=== PATIENT | male | born 1950 | race Caucasian/White ===

== ENCOUNTER 2019-03-06 15:38 | Inpatient (IN) | payer OTHER, BC ==
[~2019-03-06] VITALS: Ht 188 cm; Wt 152.9 kg
[~2019-03-06 15:38] MED LIST: ASPIR 8181 MG PO; CARVEDILOL12.5 MG PO; FUROSEMIDE 80 M80 M1 PO; K-DUR 20 MEQ T20 MEQ PO; LIPITOR80 MG PO; MULTIVITAMINS PO; PANTOPRAZOLE SO40 M1 PO; QUINU10 PD PO
[2019-03-06 16:06] VITALS: BP 97/60
[2019-03-06] MEDS ORDERED: TYLENOL EXTRA500 MG PO (16:09)
[2019-03-06] MEDS ORDERED: FLOMAX0.4 MG PO (16:10)
[2019-03-06] MEDS ORDERED: KLOR-CON 1010 MEQ PO (16:11)
[2019-03-06 16:44] LABS: HEMATOCRIT 36.2 % (42.0-52.0); MCH 28.7 pg (26.0-34.0); MCHC 33.2 g/dL (28.0-37.0); MCV 86.3 fL (80.0-100.0); RBC 4.19 mil/uL (4.50-6.00); RDW 15.1 % (10.5-14.5); WBC 6.5 thou/uL (4.0-11.0)
[2019-03-06 16:55] LABS: INR 1.1; PROTIME 11.9 Seconds (9.3-11.4)
[2019-03-06 17:00] LABS: ANION GAP 9 mmol/L (7-16); BUN 39 mg/dL (7-18); CALCIUM 8.8 mg/dL (8.5-10.1); CHLORIDE 103 mmol/L (98-107); CO2 23 mmol/L (21-32); CREATININE 2.5 mg/dL (0.7-1.3); GLUCOSE 108 mg/dL (74-106); POTASSIUM 4.4 mmol/L (3.5-5.1); SODIUM 135 mmol/L (136-145); TROPONIN-I <0.06 ng/mL (<0.06)
--- NOTE | 2019-03-06 18:17 | NUR ---
PT ARRIVED TO THE UNIT AT APPROX 1600 WITH ALL BELONGINGS DIRECT ADMIT FROM DR. KWAN OFFICE. DR. KWAN NOTIFIED OF PT ARRIVAL, ORDERS RECEIVED AND IMPLEMENTED. PT ALERT AND ORIENTED, VSS, DENIES PAIN, DENIES CHEST PAIN. O2 SATS WNL ON ROOM AIR, UP SBA WITH CANE. ADMISSION COMPLETED, CONSENTS SIGNED. TELE PUT ON, ADMIT STRIP PRINTED AND DOCUMENTED. PT CURRENTLY RESTING COMFORTABLY IN BED. WILL AKNOWLEDGE AND IMPLEMENT FURTHER ORDERS. CONTINUING TO MONITOR.
[2019-03-06 18:27] LABS: URINE BILIRUBIN NEGATIVE (Negative); URINE BLOOD NEGATIVE (Negative); URINE CLARITY CLEAR; URINE COLOR YELLOW; URINE GLUCOSE-RANDOM* NEGATIVE (Negative); URINE KETONES NEGATIVE (Negative); URINE LEUKOCYTES-REFLEX NEGATIVE (Negative); URINE NITRITE-REFLEX NEGATIVE (Negative); URINE PROTEIN (DIPSTICK) NEGATIVE (Negative); URINE SPECIFIC GRAVITY 1.015 (1.005-1.035); URINE UROBILINOGEN 0.2 E.U./dl (0.2-1.0)
--- NOTE | 2019-03-06 18:37 | NUR ---
PT CONTINUES TO BE ALERT AND ORIENTED, VSS, DENIES PAIN, UP SBA WITH CANE. AFIB ON MONITOR, O2 SATS WNL ON ROOM AIR, DENIES CP, SOB. PT DENIES CONCERNS AT THIS TIME. CONTINUING TO MONITOR.
[2019-03-06 20:00] VITALS: BP 113/63
[2019-03-07] VITALS (11 sets, daily range): BP systolic 91–148; BP diastolic 42–90
[2019-03-07 05:14] LABS: CALCIUM 8.4 mg/dL (8.5-10.1); CREATININE 2.1 mg/dL (0.7-1.3); POTASSIUM 4.2 mmol/L (3.5-5.1)
--- NOTE | 2019-03-07 05:26 | NUR ---
ASSUMED PT CARE AT 1900 WITH NO SIGN OF DISTRESS NOTED IN PT. PT IS ALERT AND ORIENTED. DENIES ANY NEED. ASSESSMENT COMPLETED AND CHARTED. SCHEDULED MEDS ADMINISTERED. VITAL SIGNS STABLE. HEART RATE CONTROLLED. DENIES ANY FURTHER NEEDS AT THIS TIME.
--- NOTE | 2019-03-07 15:26 | NUR ---
ASSUMED CARE AT SHIFT CHANGE, ALERT AND ORIENTED X4. PATIENT HR 130-138/MINUT 4 TIMES, DR WALTON NOTFIED AND ORDERED RECIEVED. BP STABLE AND AFEBRILE AND WILL CONTINUE WITH POC.
--- NOTE | 2019-03-07 20:23 | NUR ---
ASSUMED CARE AT SHIFT CHANGE ALERT AND ORIENTED X4. HR WITHIN NORMAL, BP AT 1230 92/48, AND PATIENT IS ASYMPTOMATIC. C/O OF HEADACHE AND MEDICATED WITH TYLENOL AND PATIENT REPORTED RELIEVE. PROGRESSING TOWARDS GOALS AND WILL CONTINUE WITH POC.
[2019-03-08 04:00] VITALS: BP 115/64
--- NOTE | 2019-03-08 05:29 | NUR ---
RECEIVED PT'S CARE AT 1935; PT. ON CHAIR; AOX4; DURING ASSESSMENT NO C/O PAIN; REQUESTED TO WALK AROUND THE UNIT X1; NURSE WALKED WITH PT; PT. SHOWED SOB WITH AMBULATION; AT 2300 PT. C/O SOB; NC APPLIED WITH 2L O2; SBP ON THE 90'S; [facility]AM[facility]; AFTER [address] [facility] BETTER; AT 2330 SBP ABOVE 100'S; AT MIDNIGHT C/O NAUSEA; SOB; EKG PERFORMED; CHECK CHART; CARDIOLOGY NOTIFIED; ZOFRAN ORDERED X1; PT. [facility]; REFUSED ZOFRAN; BS CHECKED; 96; ST. "IT IS LOW FOR ME"; JUICE AND CRACKERS GIVEN; DURING RE-ASSESSMENT PT. SLEEPING; AT 0350 DURING ROUNDING PT. REQUESTED PRN PAIN MEDICATION; MEDICATION GIVEN; RE-ASSESSMENT PT. SLEEPING; ABLE TO REST FOR A FEW HOURS THROUGH THE NIGHT; HR LESS THAN 100; HEART RYTHM SA; ASSESSMENT CHARGED; FOLLOWING POC; WILL KEEP MONITORING; WILL PASS ON REPORT.
[2019-03-08 05:35] LABS: CALCIUM 8.5 mg/dL (8.5-10.1); CREATININE 1.6 mg/dL (0.7-1.3); POTASSIUM 4.6 mmol/L (3.5-5.1)
[2019-03-08 07:30] VITALS: BP 126/71
[2019-03-08 11:01] VITALS: BP 119/57
[2019-03-08 15:12] VITALS: BP 106/69
--- NOTE | 2019-03-08 18:15 | NUR ---
ASSUMED CARE AT SHIFT CHANGE, ALERT AND ORIENTED X4. ASSESSMENT DOCUMENTED. WALKED THE PATIENT X1, SOB AND O2 SAT REMAINS AT 96% RA, AND PATIENT REPORTED THAT HE FELT BETTER THEN LAST NIGHT. SR WITH PVC'S ON THE MONITOR AND VSS. PROGRESSING TOWARD GOALS AND WILL CONTINUE TO MONITOR.
[2019-03-08 20:10] VITALS: BP 113/47
[2019-03-08 20:49] VITALS: BP 105/42
[2019-03-09 04:55] VITALS: BP 124/54
--- NOTE | 2019-03-09 06:33 | NUR ---
RECEIVED PT'S CARE AT 1930; PT. ON CHAIR WATCHING TV; AOX4; DURING ASSESSMENT NO C/O PAIN; NO C/O SOB OR HEADACHE; REQUESTED TO TAKE MELATONIN LATER ON THE NIGHT; VS WNL; CHECK CHART; THROUGH THE NIGHT NO C/O SOB OR HEADACHES; NO C/O BACK PAIN; ABLE TO REST FOR A FEW HOURS; ASSESSMENT CHARGE; FOLLOWING POC; WILL PASS ON REPORT.
[2019-03-09 07:33] VITALS: BP 110/50
--- NOTE | 2019-03-09 08:36 | EKG ---
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 : 1950 Requested By: Nathanael Kimble Order Number: [id number] MD: Aiden Castellano Measurements Intervals [place] Rate: 80 P: 72 [place]: 200 QRS: 57 QRSD: 108 T: 101 QT: 377 QTc: 435 Interpretive Statements Sinus rhythm Multiform ventricular premature complexes Borderline low voltage, extremity leads Compared to ECG 02/24/2008 08:01:30 Electronically Signed On 03-09-2019 8:36:43 CDT by Aiden Castellano [email or web address] ��������������������������������������������� <ELECTRONICALLY SIGNED> ���������������������������������������� By: Aiden Castellano MD ��������������������������������������������� 03/09/19 0836 5 5 Aiden Castellano MD /FERNANDO
--- NOTE | 2019-03-09 08:43 | EKG ---
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1950 Requested By: Clarence Puckett Order Number: [id number] MD: Aiden Castellano Measurements Intervals [place] Rate: 95 P: 74 [place]: 198 QRS: 55 QRSD: 109 T: 100 QT: 409 QTc: 514 Interpretive Statements Sinus rhythm Ventricular tachycardia, unsustained Incomplete left bundle branch block Low voltage, extremity and precordial leads Compared to ECG 02/24/2008 08:01:30 Electronically Signed On 03-09-2019 8:43:37 CDT by Aiden Castellano [email or web address] ��������������������������������������������� <ELECTRONICALLY SIGNED> ���������������������������������������� By: Aiden Castellano MD ��������������������������������������������� 03/09/19 0843 2348 Aiden Castellano MD /FERNANDO
--- NOTE | 2019-03-09 08:44 | EKG ---
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1950 Requested By: Clarence Puckett Order Number: [id number] MD: Aiden Castellano Measurements Intervals [place] Rate: 83 P: 77 [place]: 189 QRS: 57 QRSD: 112 T: 105 QT: 392 QTc: 461 Interpretive Statements Sinus rhythm Ventricular trigeminy Low voltage, precordial leads Compared to ECG 02/24/2008 08:01:30 Electronically Signed On 03-09-2019 8:44:04 CDT by Aiden Castellano [email or web address] ��������������������������������������������� <ELECTRONICALLY SIGNED> ���������������������������������������� By: Aiden Castellano MD ��������������������������������������������� 03/09/19 0844 50 50 Aiden Castellano MD /FERNANDO
--- NOTE | 2019-03-09 08:54 | H ---
[facility] [place] [address] HISTORY AND PHYSICAL Name: BARBI COLIN Room #: 209-P ADM IN M.R.#: [id number] Admission: 03/06/19 ������������������ Attend Phys: Clarence Puckett MD Discharge: ������������������ Date of : 46 Report #: [id number] THIS REPORT FOR: //name// CC: Clarence Puckett DATE OF SERVICE: 03/06/2019 CHIEF COMPLAINT: Lightheadedness and fatigue. HISTORY OF PRESENT ILLNESS: The patient is a 68-year-old gentleman who came to the office with a 2-day history of lightheadedness. 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 He felt lightheaded and dizzy. He felt short of breath with exertion. He was unable to complete his duties and his coworkers helped him to get home. He said for the last couple of months, he has felt "fatigued," but his symptoms intensified the last 2 days. The lightheaded feeling is new as well. In the office, he had a blood pressure of 97/57 and a peripheral pulse palpated by the O2 sat monitor at 41. However, EKG revealed atrial fibrillation of 90 with an incomplete bundle branch block. This appears to be a new change from EKG as recorded at the counter helper's office in January. He has previously seen Dr. Kimble for Cardiology services. PAST MEDICAL HISTORY: Atrial flutter. He had an ablation procedure in 2007, coronary artery disease and had cardiac bypass and a mitral valve repair in 2007. It sounds to be a 2-vessel bypass. He also has a history of hypertension, GERD, dyslipidemia, diabetes type 2, diet controlled. PAST SURGICAL HISTORY: Cardiac bypass and mitral valve repair in 2007, right total knee replacement in 2010, previous ablation for atrial flutter. FAMILY HISTORY: Noncontributory. SOCIAL HISTORY: He lives at home. No chronic alcohol or tobacco use. ALLERGIES: None. MEDICATIONS: Lipitor 80 mg, potassium 10 mEq 2 a day, multivitamin, Flomax 0.4 mg, torsemide 40 mg a day, carvedilol 12.5 mg b.i.d., quinapril 10 mg, aspirin 81 mg. REVIEW OF SYSTEMS: He denies any syncope, chest pain, shortness of breath with rest, nausea, vomiting, diarrhea, constipation, dysuria. OBJECTIVE: VITAL SIGNS: Blood pressure 97/57, temperature 97.4, peripheral pulse noted 41, but apical pulse with EKG 90, weight is 317, O2 sat 97% [place] [address] HISTORY AND PHYSICAL Name: BARBI COLIN Room #: 209-P [facility] IN M.R.#: [id number] Admission: 03/06/19 ������������������ Attend Phys: Clarence Puckett MD Discharge: ������������������ Date of : 48 Report #: [id number] GENERAL: He is awake and alert, in no distress. HEAD AND NECK: Unremarkable. LUNGS: Clear. HEART: Irregular. No murmur. ABDOMEN: Obese, soft, normoactive bowel sounds. EXTREMITIES: 1+ edema. NEUROLOGIC: Motor strength 5/5 throughout. ASSESSMENT: 1. New onset atrial fibrillation. 2. Coronary artery disease. PLAN: He will be admitted to CCU with telemetry monitoring and lab data. I will ask Dr. Kimble to follow him as well. ��������������������������������������������� <ELECTRONICALLY SIGNED> ���������������������������������������� By: Clarence Puckett MD ��������������������������������������������� 03/09/19 0854 1542 1813 Clarence Puckett MD /nt
[2019-03-09 11:30] VITALS: BP 89/49
[2019-03-09] MEDS ORDERED: COREG6.25 MG PO (12:31)
[2019-03-09 13:29] VITALS: BP 89/49
--- NOTE | 2019-03-09 15:17 | NUR ---
PT ALERT AND ORIENTED TIMES FOUR. VSS, SR ON TELE. PT DENIES PAIN/SOA. PT TOLERATES MEDS AND MEALS. PT UP TO CHAIR FOR MOST OF THE SHIFT. PT PROGRESSING TOWRADS POC GOALS.
--- NOTE | 2019-03-10 09:49 | D ---
[facility] [place] [address] DISCHARGE SUMMARY Name: BARBI COLIN Room #: 209-P [facility] IN M.R.#: [id number] Admission: 03/06/19 ������������������ Attend Phys: Clarence Puckett MD Discharge: 03/09/19 ������������������ Date of : 48 Report #: [id number] THIS REPORT FOR: //name// CC: Clarence Puckett DATE OF SERVICE: 03/09/2019 FINAL DIAGNOSES: 1. Acute kidney injury. 2. Orthostatic hypotension. 3. Premature atrial contractions. 4. Coronary artery disease. HOSPITAL COURSE: The patient was admitted from the office with suspected atrial fibrillation, but EKG was reinterpreted and referred with Dr. Kimble who felt this represented premature atrial contractions. He was mildly orthostatic and noted to have elevated creatinine. This was likely a combination of shock kidney and prerenal azotemia status. Diuretics and ISATU inhibitor were discontinued. He was given gentle IV fluids. I decreased his Coreg to 6.25 mg twice a day. He was able to be up and walk the halls with his cane as usual. He had no other interval complication. His creatinine was coming down gradually to 1.6 prior to discharge. PHYSICAL EXAMINATION: GENERAL: On the day of discharge, he was awake and alert. VITAL SIGNS: Stable. LUNGS: Clear. HEART: Regular. ABDOMEN: Soft, normoactive bowel sounds. EXTREMITIES: No edema. DISPOSITION: He is discharged to home with diet and activity as tolerated. Follow up with me in [address] Kimble in 2 weeks. MEDICATIONS: Aspirin 81, multivitamin, Protonix, Lipitor 80 mg, Flomax 0.4 mg, Coreg 6.25 mg twice a day. He is instructed to discontinue his potassium, Lasix, quinapril for now. ��������������������������������������������� <ELECTRONICALLY SIGNED> ���������������������������������������� By: Clarence Puckett MD ��������������������������������������������� 03/10/19 0949 1234 1831 Clarence Puckett MD /nt
--- NOTE | 2019-03-13 15:44 | HC ---
[facility] [place] [address] CONSULTATION Name: DIXIEBARBI ADEEL Room #: 209-P [facility] IN M.R.#: [id number] Admission: 03/06/19 ������������������ Attend Phys: Clarence Puckett MD Discharge: 03/09/19 ������������������ Date of : 48 Report #: [id number] THIS REPORT FOR: //name// CC: Clarence Puckett DATE OF SERVICE: 03/06/2019 REASON FOR CONSULTATION: Near syncope. HISTORY OF PRESENT ILLNESS: The patient is a 68-year-old gentleman with a history of coronary artery disease with bypass surgery in 2007 with a left internal mammary to the LAD, arterial segment from the mammary to the diagonal branch and mitral valve repair. Postoperatively, he had atrial flutter with subsequent atrial flutter ablation. He also had hemodynamically important GI bleeding, which thankfully has not recurred, also around the time of his bypass. His recent evaluation is notable for an echocardiogram demonstrating mild to moderate left ventricular dysfunction with an ejection fraction of 45%, biatrial enlargement and moderate mitral regurgitation. Recent pharmacologic stress study (01/2019) demonstrated incomplete inferior wall infarct with mild periinfarct ischemia; EF 46%. Over the past week, the patient has noticed episodes of severe lightheadedness and near syncope when going from a sitting to standing position. 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 He became cold and clammy. He sat down and his symptoms resolved. He tells me that if he does not sit down when the symptom occurs, he would pass out. No palpitations. No chest heaviness or pressure. No loss of consciousness. He saw Dr. Puckett in the office today, at which time an EKG demonstrated an irregular rhythm. This appears to be sinus with both frequent atrial and premature ventricular complexes. Careful review does demonstrate P waves, although there is a moderate amount of baseline artifact and followup EKG has been requested. His blood pressure in Dr. Feliz's office today was 97/57. MEDICATIONS: Aspirin 81 mg daily, carvedilol 12.5 mg twice daily, potassium 20 mEq daily, Lipitor 80 mg daily, quinapril 10 mg daily, Flomax 0.4 mg daily, torsemide 20 mg daily. PAST MEDICAL HISTORY: Past history and medical records have been reviewed and include a history of coronary disease with bypass surgery and mitral valve repair, history of GI bleeding, hypertension, prostate biopsy, right knee replacement. SOCIAL HISTORY: He is a never smoker. FAMILY HISTORY: Unremarkable for premature coronary disease. [facility] [address] [place] [address] CONSULTATION Name: BARBI COLIN Room #: 209-P DIS IN [facility].#: [id number] Admission: 03/06/19 ������������������ Attend Phys: Clarence Puckett MD Discharge: 03/09/19 ������������������ Date of : 48 Report #: [id number] REVIEW OF SYSTEMS: All systems negative except as that noted above. PHYSICAL EXAMINATION: GENERAL: A pleasant gentleman, who is alert and in no distress. VITAL SIGNS: Blood pressure is 97/60, heart rate of 80 and regular. He is afebrile, 6 feet 2 inches tall, 318 pounds. HEENT: There is neither xanthelasma, subcutaneous xanthomata, oral mucosal or digital cyanosis or kyphoscoliosis present. CHEST: Clear to auscultation and percussion. CARDIAC: Regular rate and rhythm with normal S1, S2. No murmurs. There is a soft systolic murmur at the left sternal border. ABDOMEN: Soft and nontender. EXTREMITIES: Reveal trace to 1+ edema. Radial pulses are 2+. NEUROLOGIC: He is alert with a nonfocal exam. LABORATORY DATA: Troponin is 0. Sodium 135, potassium 4.4, creatinine 2.5, glucose 107. White count 6.5, hemoglobin 12, hematocrit 36, platelet count 168. IMPRESSION: 1. Orthostatic hypotension with syncope. 2. Coronary artery disease with remote bypass; recent low risk stress study (01/2019). 3. Moderate ischemic cardiomyopathy, ejection fraction 45%; chronic systolic heart failure. 4. Renal failure of uncertain chronicity. 5. Hypertension. 6. Dyslipidemia. 7. Isolated atrial and ventricular ectopy, asymptomatic. 8. Diabetes type 2, diet controlled. RECOMMENDATIONS: 1. Hold diuretic and ISATU inhibitor; gentle hydration. 2. Recheck BMP. 3. Repeat EKG. I do not suspect atrial fibrillation, but rather an exacerbation of previously documented orthostatic hypotension. We will probably need to considerably back off medicines and I would start with diuretic and ISATU inhibitor. I have discussed these issues with the patient in detail. Thank you for asking me to participate in his care. ��������������������������������������������� <ELECTRONICALLY SIGNED> ���������������������������������������� By: Nathanael Kimble MD, FACC ��������������������������������������������� 03/13/19 1544 180 48 Nathanael Kimble MD, FACC /nt
== END 2019-03-09 15:05 | disposition home or self-care (01) | DRG 308 ==
LOC: 2N 15:38
PROVIDERS: Internal Medicine; Nurse Practitioner Adult Health; ADMIT Internal Medicine Geriatric Medicine
DX: I49.1 Atrial premature depolarization (principal); N17.0 Acute kidney failure with tubular necrosis; I50.22 Chronic systolic (congestive) heart failure; I95.1 Orthostatic hypotension; Z96.651 Presence of right artificial knee joint; I11.0 Hypertensive heart disease with heart failure; K21.9 Gastro-esophageal reflux disease without esophagitis; I25.5 Ischemic cardiomyopathy; E78.5 Hyperlipidemia, unspecified; E11.9 Type 2 diabetes mellitus without complications; I48.91 Unspecified atrial fibrillation; I25.10 Atherosclerotic heart disease of native coronary artery without angina pectoris; Z95.5 Presence of coronary angioplasty implant and graft; Z79.82 Long term (current) use of aspirin; Z79.899 Other long term (current) drug therapy; Z79.84 Long term (current) use of oral hypoglycemic drugs; Z95.1 Presence of aortocoronary bypass graft
CPT/HCPCS: 10081

== ENCOUNTER 2019-05-20 16:40 | Inpatient (IN) | payer OTHER, BC ==
[~2019-05-20] VITALS: Ht 182.9 cm; Wt 136.2 kg
--- NOTE | ~2019-05-20 | H ---
[facility] [place] [address] HISTORY AND PHYSICAL Name: BARBI COLIN Room #: 358-P ADM IN M.R.#: [id number] Admission: 05/20/19 Attend Phys: Clarence Puckett MD Discharge: Date of : 48 Report #: [id number] THIS REPORT FOR: //name// CC: Clarence Puckett DATE OF SERVICE: 05/20/2019 HISTORY OF PRESENT ILLNESS: A 68-year-old male with a known history of ischemic heart disease and cardiomyopathy that he has just had marked increase in dyspnea on exertion along with orthopnea and PND during the night and he was unable to manage this and came to the office where he was clearly short of breath with even limited exertion and I felt that he needed inpatient management. His past history is noteworthy for the bypass surgery. He has had an echocardiogram done not that long ago with an ejection fraction of 45% and he has also had a stress test back in January that showed inferior wall infarct with some mild luis-infarct ischemia. He has hypertension, benign prostatic hypertrophy. He has had a total knee replacement on the right. MEDICATIONS: List includes tamsulosin, atorvastatin, carvedilol, aspirin, potassium chloride, torsemide, pantoprazole, multivitamin. FAMILY HISTORY: Noncontributory. SOCIAL HISTORY: He lives alone. No smoking or alcohol of any significance. REVIEW OF SYSTEMS: Otherwise, negative. PHYSICAL EXAMINATION: GENERAL: Shows a patient who is obviously short of breath with any exertion. He is edematous as well. VITAL SIGNS: However, were stable. HEENT: Otherwise, negative. NECK: Supple, without thyromegaly or adenopathy. CHEST: Diminished and coarse. CARDIOVASCULAR: Showed a regular rate and rhythm without definite murmur. ABDOMEN: Soft and nontender. EXTREMITIES: Showed 3-4+ pedal edema with chronic venous changes. NEUROLOGIC: Negative. LABORATORY PARAMETERS: Show a WBC of 7.9, hemoglobin 12.3, creatinine 1.7. Chest x-ray shows right pleural effusion with bronchial wall thickening representing mild congestive heart failure. ASSESSMENT AND PLAN: This is a 68-year-old male with an ischemic cardiomyopathy in exacerbation, who is in need of inpatient monitoring and may need oxygen [address] [place] [address] [place] [address] HISTORY AND PHYSICAL Name: BARBI COLIN ADEEL Room #: 358-P ADM IN .R.#: [id number] Admission: 05/20/19 Attend Phys: Clarence Puckett MD Discharge: Date of : 48 Report #: [id number] treatment. I think there is also a high likelihood due to his overweight status that he has obstructive sleep apnea and as an outpatient, we will be in analyzing for this. By: 1405 1436 John Pugh MD /PMT
--- NOTE | ~2019-05-20 | D ---
[facility] [place] [address] DISCHARGE SUMMARY Name: BARBI COLIN Room #: 358-P [facility] IN M.R.#: [id number] Admission: 05/20/19 Attend Phys: Clarence Puckett MD Discharge: 05/26/19 Date of : 48 Report #: [id number] THIS REPORT FOR: //name// CC: Clarence Puckett DATE OF SERVICE: 05/26/2019 FINAL DIAGNOSES: 1. Acute on chronic systolic heart failure. 2. Chronic kidney disease. 3. Hypokalemia. 4. Coronary artery disease. HOSPITAL COURSE: The patient was admitted with shortness of breath and edema. He was diagnosed with heart failure exacerbation. Dr. Kimble saw him in consultation and managed his diuretics. His other usual medications were continued. He had no other medical complications during his stay. His weight decreased approximately 14 kilograms during his stay. His respiratory symptoms improved significantly. DISPOSITION: He is discharged to home with low salt cardiac diet. Follow up with myself and Dr. Kimble in 1 week. Activity as tolerated. DISCHARGE MEDICATIONS: Aspirin 81 mg, multivitamin, Protonix 40 mg, Lipitor 80 mg, Flomax 0.4 mg, Tylenol, Coreg 3.125 mg b.i.d., Demadex 40 mg a day, potassium 20 mEq a day. By: 0939 0953 Clarence Puckett MD /nt
[~2019-05-20 16:40] MED LIST changes: +COREG6.25 MG PO; +FLOMAX0.4 MG PO; +KLOR-CON 1010 MEQ PO; +TYLENOL EXTRA500 MG PO
[2019-05-20 17:24] VITALS: BP 103/88
[2019-05-20] MEDS ORDERED: DEMADEX20 MG PO (18:20)
[2019-05-20] MEDS ORDERED: TYLENOL EXTRA500 MG PO (18:21)
[2019-05-20] MEDS ORDERED: KLOR-CON 1010 MEQ PO (18:22)
--- NOTE | 2019-05-20 19:46 | NUR ---
PT admitted from home for CHF and SOB, PT is A&OX3, RN has called dr and new order has received, pt's vs and o2sat are stable at this time, pt has a good dinner, pt denies pain and sob at this time.
[2019-05-20 19:52] VITALS: BP 137/86
[2019-05-21 04:22] VITALS: BP 133/88
[2019-05-21 05:45] LABS: ABSOLUTE NEUTROPHILS 5.5 thou/uL (1.4-8.2); BASOPHILS 0.7 % (0.0-2.0); EOSINOPHILS 1.4 % (0.0-3.0); HEMATOCRIT 37.6 % (42.0-52.0); HEMOGLOBIN 12.3 gm/dL (14.0-18.0); LYMPHOCYTES 18.4 % (24.0-44.0); MCH 28.2 pg (26.0-34.0); MCHC 32.7 g/dL (28.0-37.0); MCV 86.1 fL (80.0-100.0); MONOCYTES 10.7 % (1.0-8.0); PLATELET COUNT 184 thou/uL (150-400); POLYS 68.8 % (36.0-66.0); RBC 4.37 mil/uL (4.50-6.00); RDW 16.5 % (10.5-14.5); WBC 7.9 thou/uL (4.0-11.0)
[2019-05-21 05:51] LABS: CALCIUM 9.1 mg/dL (8.5-10.1); CREATININE 1.7 mg/dL (0.7-1.3); POTASSIUM 4.2 mmol/L (3.5-5.1)
--- NOTE | 2019-05-21 06:45 | NUR ---
PT STATES HE HAS ISSUES WITH URINATION. APPROX TOTAL OUT FOR THE EVENING WAS 200ML. PT HAS ORDERS FOR 2 VIEW CHEST XRAY, WILL FACILITATE GETTING THIS DONE THIS AM. COMPLETED MED REC FOR PT. PT ON ROOM AIR AND ON CONTINUOS PULSE OX THAT SHOWED PT STAYING ABOVE 90%. PT HAS NO OTHER COMPLAINTS. 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 HOURLY ROUNDING.
[2019-05-21 07:50] VITALS: BP 125/83
[2019-05-21 07:53] VITALS: BP 125/83
--- NOTE | 2019-05-21 13:39 | NUR ---
ASSESSMENT: CM REVIEWED CHART AND MET WITH PATIENT AT THE BEDSIDE. PT WAS WAS ADMITTED WITH CHF. PT REPORTS HE LIVES IN AN APT ALONE. PT REPORTS THREE FLIGHTS OF STEPS TO THE APT ABOUT 24 WITH HANDRAILS. PT REPORTS HE AMBULATES NORMALLY INDEPENDENTLY BUT DOES HAVE A CANE AND USES A ROLLATER WALKER FOR LONG DISTANCES. PT REPORTS BEING INDEPENDENT WITH ADLS. CM DISCUSSED ROLE. PT REPORTS HE HAD HH YEARS AGO AFTER A SURGERY BUT UNSURE THE AGENCY. PT STATES HE IS INDEPENDENT AND WILL NOT HAVE ANY NEEDS AT DISCHARGE.
[2019-05-21 15:53] VITALS: BP 113/66
--- NOTE | 2019-05-21 16:48 | NUR ---
pt is A & O X3, pt is on RA, and pt has continuing o2sat monitor, pt 's vs and o2sat are stable , pt denies sob with activities,pt gets up chair with assist, pt denies pain at this time.pt has slowly meeting care plan goals .
[2019-05-21 19:23] VITALS: BP 117/63
[2019-05-22 03:43] VITALS: BP 100/61
--- NOTE | 2019-05-22 05:12 | NUR ---
PT HAS RESTED FAIRLY WELL TONIGHT. PLACED ON 2L NC DURING SHIFT WITH CONTINUOUS PULS OX.
[2019-05-22 07:26] VITALS: BP 95/56
[2019-05-22 11:34] VITALS: BP 108/62
--- NOTE | 2019-05-22 14:22 | NUR ---
ASSUMED CARE OF PT AT 0700 THIS SHIFT. PT HAS BEEN COOPERATIVE, HAS DENIED ANY PAIN THIS SHIFT. PT WAS ON 2L NC DURING THE NIGHT DUE TO DESAT, HOWEVER PT'S SATS STAY IN MID TO HIGH 90s WHEN AWAKE. PT IS CURRENTLY RESTING COMFORTABLY IN ROOM. EDUCATION WAS PROVIDED, PT HAS NOT HAD VISITORS THIS SHIFT. PLAN OF CARE IS TO CONTINUE TO MONITOR PT CLOSELY AT THIS TIME.
[2019-05-22 16:15] VITALS: BP 90/47
[2019-05-22 19:24] VITALS: BP 103/67
[2019-05-23 05:24] VITALS: BP 122/72
--- NOTE | 2019-05-23 05:28 | NUR ---
PT RESTING IN BED THOUGH HAS NOT SLEPT TOO SOUNDLY. PT CONTINUES ON 2L NC W/ CONTINUOUS PULSE OX.
[2019-05-23 05:41] LABS: CREATININE 1.7 mg/dL (0.7-1.3); POTASSIUM 3.8 mmol/L (3.5-5.1)
[2019-05-23 07:32] VITALS: BP 102/68
[2019-05-23 11:55] VITALS: BP 97/55
[2019-05-23 19:25] VITALS: BP 98/65
--- NOTE | 2019-05-23 20:25 | NUR ---
PATIENT ALERT AND ORIENTED AND COOPERTIVE WITH PLAN OF CARE AND ANTICIPATING DISCHARGE HOME AFTER GETTING EXTRA FLUID OFF. PATIENT ABLE TO WALK AROUND NURSE STATION ON ROOM AIR WITH O2 SATURATION OF 95%. NO PAIN. BM TODAY AND SHOWERED. SAT IN RECLINER CHAIR MOST OF THE DAY. 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
[2019-05-24 03:48] VITALS: BP 110/69
--- NOTE | 2019-05-24 04:47 | NUR ---
Patient making progress towards outcome goals. Diuresing from Lasix. Vital signs and rhythm stable. Calls out appropriately for needs, Oxygen sat above 90's on room air but patient prefers 2L/NC on as he still feels SOA when laying down in supine position or sleeping.
[2019-05-24 05:23] LABS: CALCIUM 9.1 mg/dL (8.5-10.1); CREATININE 1.7 mg/dL (0.7-1.3); POTASSIUM 3.5 mmol/L (3.5-5.1)
[2019-05-24 07:22] VITALS: BP 116/75
[2019-05-24 11:50] VITALS: BP 99/57
[2019-05-24 15:14] VITALS: BP 119/56
--- NOTE | 2019-05-24 17:29 | NUR ---
ASSUMED CARE AT SHIFT CHANGE, ALERT AND ORIENTED X4. DENIES ANY DISCOMFORT AND VSS.PATIENT PRGOGRESSING TOWARDS GOALS. ON IV LASIX AND PO DIURETICS. AND WILL CONTINUE WITH POC.
[2019-05-24 20:00] VITALS: BP 94/62
[2019-05-25 04:46] VITALS: BP 115/66
--- NOTE | 2019-05-25 05:18 | NUR ---
PT REMAINS A&O X4 PRN Pain med for low back pain, vss, pt hoping to go home today, will con't ot monitor per ppoc.
[2019-05-25 06:04] LABS: CALCIUM 9.3 mg/dL (8.5-10.1); CREATININE 1.7 mg/dL (0.7-1.3); POTASSIUM 3.8 mmol/L (3.5-5.1)
[2019-05-25 07:33] VITALS: BP 116/81
[2019-05-25 11:34] VITALS: BP 93/55
--- NOTE | 2019-05-25 14:00 | NUR ---
ON-GOING ASSESSMENT: PT IS SLOWLY PROGRESSING TOWARDS DISCHARGE GOALS. CONTINUING TO DIURESIS. PT REPORTS HE WILL HAVE NO NEEDS AT DISCHARGE. CM WILL CONTINUE TO FOLLOW TO ASSIST NEEDED.
[2019-05-25 16:45] VITALS: BP 111/59
[2019-05-25 19:32] VITALS: BP 97/59
--- NOTE | 2019-05-25 19:52 | NUR ---
ASSUMED PATIENT CARE AT 0700. A/O X4. BLE STILL 3+ EDEMA. AMBULATED IN HALLWAY. SOB WITH EXERTION. SLOWLY TOWARDS POC GOALS.
[2019-05-26 03:34] VITALS: BP 114/73
--- NOTE | 2019-05-26 04:10 | NUR ---
progressing toward discharge goals.he is expecting to discharge today. denies pain. resting quietly tonight.
[2019-05-26 05:31] LABS: CALCIUM 9.5 mg/dL (8.5-10.1); CREATININE 1.7 mg/dL (0.7-1.3)
[2019-05-26 07:01] VITALS: BP 130/71
[2019-05-26] MEDS ORDERED: COREG6.25 MG PO (10:12)
[2019-05-26] MEDS ORDERED: KLOR-CON 1010 MEQ PO (10:12)
[2019-05-26] MEDS ORDERED: DEMADEX20 MG PO (10:13)
[2019-05-26 13:17] VITALS: BP 130/71
--- NOTE | 2019-05-26 13:56 | NUR ---
care of pt assumed this am @ ~0700. pt awake and sitting in his chair awaiting his doctors and his breakfast. pt in good spirits and hopeful for dc today. pt states that he has his own vechile in the parking lot such that he will drive himself home. pt iv and tele dc'd this afternoon for discharge. pt denies co soa, pain and no n/v/d. pt aware of need to consume a low sodium and heart healthy diet. pt encouraged to keep track of his weight daily and log into a journal for knowledge/assessment of potential weight gain and to notify his pcp and/or rv repairer to avoid hospitalization due to chf and fluid retention. pt states he is limited to drinking 2lt of fluid/day. discharge paperwork and scripts given/gone through w/ pt. pt dressed in own clothing and awaiting wc w/ transporter to [facility].
--- NOTE | 2019-05-26 15:04 | NUR ---
ON-GOING ASSESSMENT: PT HAD ORDERS TO DISCHARGE HOME TODAY WITH NO NEEDS. PT REPORTS NO NEEDS FROM CM.
--- NOTE | 2019-05-26 17:23 | EKG ---
[place] [address] [facility] [place] [address] ELECTROCARDIOGRAM REPORT Name: BARBI COLIN ADEEL Room #: 358-P [facility] M.R.#: [id number] Admission: 05/20/19 Attend Phys: Clarence Puckett MD Discharge: 05/26/19 Date of : 46 Report #: [id number] THIS REPORT FOR: //name// [facility] Test Date: 2019-05-25 Test Time: 15:38:38 Pat Name: BARBI COLIN Department: Room: 358 P Gender: M [place] Program Coordinator: Felicitas REAGAN : 1950 Requested By: Clarence Puckett Order Number: [id number] MD: Nathanael Kimble Measurements Intervals [place] Rate: 93 P: 73 IN: 225 QRS: 54 QRSD: 108 T: 203 QT: 346 QTc: 431 Interpretive Statements Sinus tachycardia Multiform ventricular premature complexes Prolonged IN interval ST and T wave abnormality Compared to ECG 03/07/2019 23:51:02 No significant change was found Electronically Signed On 05-26-2019 17:23:04 CDT by Nathanael Kimble [email or web address] <ELECTRONICALLY SIGNED> By: Nathanael Kimble MD, [facility] 05/26/19 1723 1538 1538 Nathanael Kimble MD, [facility] /EPI
== END 2019-05-26 14:25 | disposition home or self-care (01) | DRG 291 ==
LOC: 3W 16:40 → ENTRNSPT 05-26 14:16 → 3W 05-26 14:25
PROVIDERS: Internal Medicine; Nurse Practitioner; Nurse Practitioner Adult Health; ADMIT Internal Medicine Geriatric Medicine
DX: I13.0 Hypertensive heart and chronic kidney disease with heart failure and stage 1 through stage 4 chronic kidney disease, or unspecified chronic kidney disease (principal); I50.23 Acute on chronic systolic (congestive) heart failure; N17.9 Acute kidney failure, unspecified; I25.5 Ischemic cardiomyopathy; G47.33 Obstructive sleep apnea (adult) (pediatric); E11.22 Type 2 diabetes mellitus with diabetic chronic kidney disease; N18.9 Chronic kidney disease, unspecified; I95.9 Hypotension, unspecified; I49.3 Ventricular premature depolarization; I49.1 Atrial premature depolarization; Z96.651 Presence of right artificial knee joint; E78.5 Hyperlipidemia, unspecified; I25.10 Atherosclerotic heart disease of native coronary artery without angina pectoris; Z95.1 Presence of aortocoronary bypass graft; Z98.49 Cataract extraction status, unspecified eye; Z79.899 Other long term (current) drug therapy
CPT/HCPCS: 10779; 10879

== ENCOUNTER → 2019-07-19 | Outpatient (CLI) | payer OTHER, BC ==
[~2019-07-19] MED LIST changes: +DEMADEX20 MG PO
--- NOTE | 2019-07-22 08:21 | SLE ---
[facility] [place] [address] POLYSOMNOGRAPHY STUDY Name: BARBI COLIN Room #: REG [facility]#: [id number] Admission: 07/19/19 Attend Phys: Dalila Cuevas MD Discharge: Date of : 46 Report #: [id number] THIS REPORT FOR: //name// CC: Dalila Kimble MD [facility] Clarence Puckett DATE OF SERVICE: 07/19/2019 ATTENDING PHYSICIAN: Dr. Nathanael Kimble. The patient is 69 years old who weighs 290 pounds with a BMI of 37.2. The patient's [place] score was 2. The patient underwent a split night study performed at [facility]. The patient has history of mild ischemic cardiomyopathy with an EF of 45%. During the night study, the patient spent 426 minutes in bed and slept for 272 minutes with a low sleep efficiency of 64%. Sleep latency was 10.9 minutes with absent REM sleep. Sleep architecture showed increased stage 1 and stage 2 sleep with absent slow wave and absent REM sleep. During the initial diagnostic portion of the study, the patient slept for 119 minutes. During that time, the patient had 43 obstructive apneas, 25 mixed apneas and 3 central apneas. The patient also had 58 hypopneas. The patient's apnea-hypopnea index was 64 per hour. The patient did not have REM sleep. The patient's supine AHI was 69 per hour. EKG monitoring revealed an average heart rate of 51 beats per minute. The patient's EKG was abnormal with irregular rhythm throughout the study, suggesting atrial fibrillation. The patient had frequent PVCs throughout, including bigeminies and trigeminies. The patient also had short episodes of narrow complex tachycardia. Luis Antonio-Bar breathing pattern was also observed. The patient's maximum heart rate was 100 beats per minute. PLMS were seen at an index of 8 per hour, and only 2 per hour caused EEG arousals. Nocturnal oximetry study during the diagnostic portion revealed an average oxygen saturation of 94% with lowest of 83%. Ten minutes were spent in oxygen saturation of less than 89%. The patient met the criteria for CPAP initiation. It was started at 5 cm water and titrated up to 9 cm water. However, due to persistent respiratory events, the patient was switched to BiPAP. There were central apneas observed as well. However, optimum BiPAP pressure was not achieved during this split night study. [facility] [address] [place] [address] POLYSOMNOGRAPHY STUDY Name: BARBI COLIN [id number] Admission: 07/19/19 Attend Phys: Dalila Cuevas MD Discharge: Date of : 46 Report #: [id number] At a BiPAP pressure of 11/7, the patient slept for 76 minutes, but the patient had 33 central apneas and 32 hypopneas, resulting in an AHI of 51 per hour. Oxygen saturations did remain above 88%. The patient was then switched back to CPAP at 11 cm water. However, with limited sleep of only 7 minutes the patient did have 8 central apneas and 1 hypopnea, and no obstructive apneas, and the patient's AHI was still 73 per hour. Optimum CPAP or BiPAP pressure was not achieved. A backup rate with a BiPAP of 14 was also attempted. IMPRESSION: 1. Severe sleep apnea-hypopnea syndrome at an AHI of 64 per hour. 2. Mild nocturnal hypoxia secondary to obstructive sleep apnea. 3. Reduced sleep efficiency of 69%, resulting from sleep maintenance insomnia. 4. Abnormal EKG consistent with irregular rhythm, favoring atrial fibrillation. There were frequent premature ventricular contractions throughout as well as short episodes of narrow complex tachycardias. Would recommend Cardiology followup. 5. Luis Antonio-Bar breathing pattern was also observed. The patient has known mild ischemic cardiomyopathy with an EF of 45%. RECOMMENDATIONS: 1. Optimum CPAP/BiPAP pressure was not achieved on this split night study. I would recommend that the patient should return to the sleep lab for a repeat full night CPAP/BiPAP titration study, starting at a CPAP pressure of 7 cm water. The patient may need BiPAP with a backup rate. 2. The patient should also be further re-evaluated for cardiac status and consider repeating an echo if it has not been done in the last 6 months to assess for any deterioration in his ejection fraction. As discussed above, Luis Antonio-Bar breathing pattern was observed, which could be seen in patients with cardiomyopathy. 3. 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 4. Cautioned regarding driving until the patient's sleep apnea is effectively treated. 5. Follow with Cardiology regarding abnormal EKG. 6. Weight loss is strongly advised. <ELECTRONICALLY SIGNED> By: Satish Acosta MD 07/22/19 0821 1545 1632 Satish Acosta MD /nt
== END ==
LOC: SLEEPLAB 09:30
DX: G47.33 Obstructive sleep apnea (adult) (pediatric) (principal); G47.30 Sleep apnea, unspecified; R09.02 Hypoxemia

== ENCOUNTER → 2019-09-24 | Outpatient (CLI) | payer OTHER, BC ==
--- NOTE | 2019-09-27 21:35 | SLE ---
[facility] [place] [address] POLYSOMNOGRAPHY STUDY Name: BARBI COLIN Room #: REG [facility].#: [id number] Admission: 09/24/19 Attend Phys: Satish Acosta MD Discharge: Date of : 46 Report #: [id number] THIS REPORT FOR: //name// CC: Satish Ku MD DATE OF SERVICE: 09/24/2019 SLEEP STUDY ATTENDING PHYSICIAN: Dr. Terrance Ku. The patient is a 69-year-old who weighs 290 pounds with a BMI of 37.4. The patient had a previous sleep study on 07/19/2019 and was found to have severe obstructive sleep apnea at an AHI of 64 per hour. The patient also had reduced sleep efficiency and Luis Antonio-Bar breathing pattern was also observed. The patient's ejection fraction has been 45%. Optimum CPAP pressure was not achieved. As a result, the patient was referred back for a CPAP-BiPAP titration study. During the night study, the patient spent 421 minutes in bed and slept for 285 minutes with a sleep efficiency of 67%. Sleep latency was 58 minutes, which was prolonged with a REM latency of 101 minutes. Sleep architecture showed normal stage 1 sleep, increased stage 2 sleep, reduced slow wave and normal REM sleep. EKG monitoring revealed an average heart rate of 81 beats per minute. The rhythm was irregular favoring atrial fibrillation. There were frequent PVCs seen throughout the study. PLMS were seen at an index of 68 per hour and 5.7 per hour paused EEG arousals. The patient was started on BiPAP at a pressure of 10/6 and titrated up to 15/9. At the final pressure, the patient slept for 50 minutes. The patient had 27 minutes of lateral REM sleep, but no supine REM sleep seen. The patient's AHI was reduced to 3.5 per hour and oxygen saturation remained above 89%. IMPRESSION: 1. Severe sleep apnea-hypopnea syndrome diagnosed by previous sleep study. 2. Reduced sleep efficiency of 67%, resulting from sleep onset and sleep maintenance insomnia. 3. Abnormal EKG consistent with atrial fibrillation and premature ventricular contractions throughout the night. 4. Severe periodic limb movements. [facility] [address] [place] [address] POLYSOMNOGRAPHY STUDY Name: BARBI COLIN Room #: REG [facility].#: [id number] Admission: 09/24/19 Attend Phys: Satish Acosta MD Discharge: Date of : 46 Report #: [id number] RECOMMENDATIONS: 1. BiPAP at a pressure of 15/9 completely eliminated the patient's sleep apnea should be used on a nightly basis. 2. Followup in 4-6 weeks to assess compliance with BiPAP and to document clinical improvement. 3. Weight loss is strongly advised. 4. Avoid ENGINEERING OPERATOR depressants. 5. Cautioned regarding driving until symptoms of sleep apnea resolve with the use of BiPAP. 6. Follow up with Cardiology regarding abnormal EKG. 7. If the patient's insomnia persists despite effective use of BiPAP, then it should be further evaluated and treated according to the etiology. <ELECTRONICALLY SIGNED> By: Satish Acosta MD 09/27/19 2135 1451 1512 Satish Acosta MD /nt
== END ==
LOC: SLEEPLAB 08:03
DX: G47.33 Obstructive sleep apnea (adult) (pediatric) (principal); G47.30 Sleep apnea, unspecified

== ENCOUNTER → 2019-10-12 | Outpatient (CLI) | payer OTHER, BC | LOC: SJCVC 12:28 | DX: R94.31 Abnormal electrocardiogram [ECG] [EKG] (principal); I25.10 Atherosclerotic heart disease of native coronary artery without angina pectoris; I11.0 Hypertensive heart disease with heart failure; I50.42 Chronic combined systolic (congestive) and diastolic (congestive) heart failure; E78.5 Hyperlipidemia, unspecified; I65.23 Occlusion and stenosis of bilateral carotid arteries; E11.9 Type 2 diabetes mellitus without complications; G47.33 Obstructive sleep apnea (adult) (pediatric); E66.9 Obesity, unspecified; Z79.82 Long term (current) use of aspirin; Z79.899 Other long term (current) drug therapy ==

== ENCOUNTER → 2020-04-11 | Outpatient (CLI) | payer OTHER, BC ==
[~2020-04-11] MED LIST changes: +AMIODARONE HCL400 MG PO; +COLACE100 MG PO; +HYDROCODON-ACE1 EAC7 PO; +MELATONIN3 M1 PO; +MINOCYCLINE 5050 M1 PO; +MIRALAX119 GM PO; +POTASSIUM20 PO; +PROSCAR 5MG TABL5 M1 PO; +ZAROXOLYN 5MG TA5 MG PO
== END ==
LOC: SJCVCIMAG 08:34
PROVIDERS: ATTEND Internal Medicine
DX: I08.3 Combined rheumatic disorders of mitral, aortic and tricuspid valves (principal); I65.23 Occlusion and stenosis of bilateral carotid arteries; I44.0 Atrioventricular block, first degree; I44.7 Left bundle-branch block, unspecified; R94.31 Abnormal electrocardiogram [ECG] [EKG]; I25.810 Atherosclerosis of coronary artery bypass graft(s) without angina pectoris; I11.0 Hypertensive heart disease with heart failure; I50.42 Chronic combined systolic (congestive) and diastolic (congestive) heart failure; I48.92 Unspecified atrial flutter; E78.5 Hyperlipidemia, unspecified; G47.33 Obstructive sleep apnea (adult) (pediatric); E11.9 Type 2 diabetes mellitus without complications; M19.90 Unspecified osteoarthritis, unspecified site; E66.9 Obesity, unspecified; Z79.82 Long term (current) use of aspirin; Z79.899 Other long term (current) drug therapy

== ENCOUNTER → 2020-07-08 | Outpatient (CLI) | payer OTHER, BC ==
[~2020-07-08] MED LIST changes: -AMIODARONE HCL400 MG PO; -COLACE100 MG PO; -HYDROCODON-ACE1 EAC7 PO; -MELATONIN3 M1 PO; -MINOCYCLINE 5050 M1 PO; -MIRALAX119 GM PO; -POTASSIUM20 PO; -PROSCAR 5MG TABL5 M1 PO; -ZAROXOLYN 5MG TA5 MG PO
== END ==
LOC: LAB 15:02
PROVIDERS: ATTEND Internal Medicine
DX: Z01.812 Encounter for preprocedural laboratory examination (principal); Z20.828 Contact with and (suspected) exposure to other viral communicable diseases

== ENCOUNTER → 2020-07-08 | Outpatient (CLI) | payer OTHER, BC ==
[~2020-07-08] MED LIST changes: +AMIODARONE HCL400 MG PO; +HYDROCODON-ACE1 EAC7 PO; +MELATONIN3 M1 PO; +MIRALAX119 GM PO; +PROSCAR 5MG TABL5 M1 PO; +ZAROXOLYN 5MG TA5 MG PO
== END ==
LOC: SJCVC 13:06
PROVIDERS: ATTEND Internal Medicine
DX: R94.31 Abnormal electrocardiogram [ECG] [EKG] (principal); I44.0 Atrioventricular block, first degree; I25.10 Atherosclerotic heart disease of native coronary artery without angina pectoris; I11.0 Hypertensive heart disease with heart failure; I50.42 Chronic combined systolic (congestive) and diastolic (congestive) heart failure; I25.5 Ischemic cardiomyopathy; E78.5 Hyperlipidemia, unspecified; E11.9 Type 2 diabetes mellitus without complications; G47.33 Obstructive sleep apnea (adult) (pediatric); I34.0 Nonrheumatic mitral (valve) insufficiency; I65.23 Occlusion and stenosis of bilateral carotid arteries; Z79.899 Other long term (current) drug therapy

== ENCOUNTER → 2020-07-14 | Outpatient (CLI) | payer OTHER, BC ==
[~2020-07-14] VITALS: Ht 182.9 cm; Wt 106.1 kg
[2020-07-14 07:06] VITALS: BP 99/60
[2020-07-14 07:36] LABS: CALCIUM 9.2 mg/dL (8.5-10.1); CREATININE 1.9 mg/dL (0.7-1.3)
[2020-07-14 07:41] LABS: POTASSIUM 2.9 mmol/L (3.5-5.1)
--- NOTE | 2020-07-14 09:28 | TEE ---
[facility] [place] [address] TRANSESOPHAGEAL ECHOCARDIOGRAM Name: BARBI COLIN Room #: REG [facility] GriffinDesean#: [id number] Admission: 07/14/20 Attend Phys: Nathanael Kimble MD, Discharge: Date of : 46 Report #: [id number] THIS REPORT FOR: cc: Claernce Puckett MD, David W. MD Lundgren, Craig H. MD [facility] ~ APPROVED REPORT Study performed: 07/14/2020 07:46:31 EXAM: Comprehensive 2D, Doppler, and color-flow Echocardiogram Patient Location: Out-Patient Room #: 9 Status: routine BSA: 2.28 HR: 70 bpm BP: 89/56 mmHg Rhythm: Atrial Flutter Other Information Study Quality: Excellent Indications Mitral Valve Disease Echo Enhancing Agent Indication: Rule out Shunt Agent(s) / Amount(s) Used: Agitated Saline 7 cc Procedure After obtaining informed consent, patient underwent transesophageal echo in the [employer]. Type of Sedation : Conscious Sedation Sedation was administered by Nurse. Versed (3 mg) Fentanyl (50 mcg) Transesophageal probe was inserted and advanced into esophagus without difficulty by Nathanael Kimble MD. Echo enhancement indication: R/O Septal defect. Echo enhancement agent administered: Agitated Saline The ROSANNA was performed without complications. Throughout the procedure, the blood pressure, pulse oximetry, cardiac rhythm, and rate were monitored. The patient tolerated the procedure without adverse effects. [facility] [address] [place] [address] TRANSESOPHAGEAL ECHOCARDIOGRAM Name: DIXIEBARBI ADEEL Room #: REG CL Karen#: [id number] Admission: 07/14/20 Attend Phys: Nathanael Kimble, Discharge: Date of : 46 Report #: [id number] from conscious sedation was uneventful and vital signs were stable. Left Ventricle The left ventricle is normal size. There is global hypokinesis of the left ventricle. There is normal left ventricular wall thickness. Left ventricular ejection fraction is severely decreased. LVEF is 25-30%. Right Ventricle The right ventricle is normal size. The right ventricular systolic function is normal. Atria Left atrium is dilated. Left atrial appendage appears to be oversewn. No thrombus or flow. No shunting by contrast bubble injection Right atrium is dilated. Aortic Valve The aortic valve is normal in structure. No aortic regurgitation is present. There is no aortic valvular stenosis. Mitral Valve Changes consistent with mitral valve repair; mitral annuloplasty ring noted. Failure of leaflets to coapt properly; probably tethered posterior leaflet Moderately severe to severe mitral regurgitation No evidence of mitral valve stenosis. Tricuspid Valve The tricuspid valve is normal in structure. Mild tricuspid regurgitation. Pulmonic Valve The pulmonary valve is normal in structure. There is no pulmonic valvular regurgitation. Great Vessels The aortic root is normal in size. The ascending aorta is normal in size. IVC is normal in size and collapses >50% with inspiration. Pericardium There is no pericardial effusion. <Conclusion> Left ventricular ejection fraction is severely decreased. [facility] [address] [place] [address] TRANSESOPHAGEAL ECHOCARDIOGRAM Name: BARBI COLIN Room #: REG CL [facility].#: [id number] Admission: 07/14/20 Attend Phys: Nathanael Kimble, Discharge: Date of : 46 Report #: [id number] There is global hypokinesis of the left ventricle. LVEF is 25-30%. Left atrium is dilated. Left atrial appendage appears to be oversewn. No thrombus or flow. No shunting by contrast bubble injection The aortic valve is normal in structure. No aortic regurgitation or stenosis. Changes consistent with mitral valve repair; mitral annuloplasty ring noted. Failure of leaflets to coapt properly, probably tethered posterior leaflet Moderately severe to severe mitral regurgitation There is no pericardial effusion. <ELECTRONICALLY SIGNED> By: Nathanael Kimble MD, FACC 07/14/20926 6 6 Nathanael Kimble MD, FACC /INF
--- NOTE | 2020-07-14 09:48 | CATHLAB ---
[facility] [place] [address] INVASIVE PROCEDURE REPORT Name: BARBI COLIN Room #: REG [facility].#: [id number] Admission: 07/14/20 Attend Phys: Nathanael Kimble MD, Discharge: Date of : 46 Report #: [id number] THIS REPORT FOR: cc: Clarence Puckett MD, David W. MD Lundgren, Craig H. MD [facility] ~ APPROVED REPORT Study performed: 07/14/2020 08:21:58 Patient Details Patient Status: Out-Patient Room #: The patient is a 70 year-old male Event Personnel Nathanael Kimble Access Specialist, Montse Patterson RN RN, Shannan Gomes RN RN, Iris Lara RTR Monitor, Jean Saba RTR Scrub Procedures Performed Right and Left Heart Cath Lt Vent/Cors/Grafts [id number] RLLVCORCAB Art Access - R femoral artery* Pelon Access - R femoral vein 02227 Initial Mod Sed Same Phys/QHP Gr5y 136522 25161 Mod Sed Same Phys/QHP Ea 607615 Procedure Narrative The patient was brought electively to the Cardiac Catheterization Laboratory and was prepped and draped in a sterile manner. The Right Groin^ was infiltrated with subcutaneous anesthesia. A Right Heart Catheterization was performed with a 7 Fr. [place]-Jan catheter and pressure were recorded. Cardiac outputs were obtained by the Thermal Dilution method. A PINNACLE 6FR Sheath #[id number] sheath was inserted into the RFA^. Coronary angiography was performed using coronary diagnostic catheters. The right coronary system was accessed and visualized with a JR4 catheter. The left coronary system was accessed and visualized with a JL4 catheter. The left ventricle was accessed and visualized with a JR4 catheter. Left ventricular/Aortic Valve gradient assessed via catheter pullback. Left ventriculogram was performed in 30 degree projection. Closure device was deployed with a Fr MYNXGRIP 6/7F #[id number]. The patient tolerated the procedure well and there were no complications associated with the procedure. There was no hematoma. Intraoperative Conscious Sedation [address] [address] INVASIVE PROCEDURE REPORT Name: BARBI COLIN Room #: REG [facility] [id number] Admission: 07/14/20 Attend Phys: Nathanael Kimble, Discharge: Date of : 46 Report #: [id number] Sedation start time: 8:23 Case end Time: 9:18 Fluoro Time: 7.00 minutes Dose: DAP 9758.00 cGycm2 1130 mGy Contrast Type and Amount: Visipaque 50 ml Coronary Angiography The patient's coronary anatomy is left dominant. Diagnostic Cath Left Main Mild left main plaquing LAD Occlusion of the LAD at or near its origin. Widely patent left internal mammary to the LAD with a "Y" segment from the mammary to the diagonal branch Mild mid vessel LAD plaquing. Moderate distal LAD disease at the apex LAD and diagonal filled by RSOS Diagonal 1 Large bifurcating diagonal branch, angiographically normal, filled by ROSS. Circumflex Dominant circumflex. Mild plaquing OM1 Normal first marginal branch L PDA Normal posterior descending Right Coronary Small nondominant right coronary Left Ventriculography Left Ventriculography was not performed. Hemodynamics The right atrial mean pressure is 18 mmHg. The right ventricular pressure is 49/13 mmHg. The pulmonary artery pressure is 53/23 mmHg with a mean of 36 mmHg. The mean pulmonary capillary wedge pressure is 33 mmHg. The aortic pressure is 96/65 mmHg with a mean of 79 mmHg. The left ventricular pressure is 96/16 mmHg with a mean of mmHg. The left ventricular end diastolic pressure is 27 mmHg. There was no gradient across the aortic valve upon pullback. The cardiac output using thermo method is 2.83 L/min. The cardiac index using thermo method is 1.24 L/min/m2. Conclusion 1. Elevated right and left heart pressures 2. Mild left main plaquing 3. Occlusion of the LAD. Widely patent left internal mammary to the LAD with "Y" segment from the mammary to a large bifurcating diagonal branch [facility] [address] [place] [address] INVASIVE PROCEDURE REPORT Name: BARBI COLIN Room #: REG [facility]#: [id number] Admission: 07/14/20 Attend Phys: Nathanael Kimble, Discharge: Date of : 46 Report #: [id number] 4. Mild plaquing in a dominant circumflex 5. Small nondominant right coronary <ELECTRONICALLY SIGNED> By: Nathanael Kimble MD, FACC 07/14/20946 6 6 Nathanael Kimble MD, FACC /INF
--- NOTE | 2020-07-14 10:03 | EKG ---
[facility] [address] [place] [address] ELECTROCARDIOGRAM REPORT Name: BARBI COLIN [facility] [id number] Admission: 07/14/20 Attend Phys: Nathanael Kimble MD, Discharge: Date of : 46 Report #: [id number] THIS REPORT FOR: cc: Clarence Puckett MD, David W. MD Lammoglia, Francisco J. MD ~ THIS REPORT FOR: //name// [facility] Test Date: 2020-07-14 Test Time: 09:36:52 Pat Name: BARBI COLIN Department: Room: Gender: Grievance And Appeals Specialist: [facility] : 1950 Requested By: Nathanael Kimble Order Number: [id number] MD: Carlos Sharma Measurements Intervals [place] Rate: 76 P: [place]: QRS: 45 QRSD: 127 T: 229 QT: 455 QTc: 512 Interpretive Statements Atrial fibrillation Frequent ventricular premature complexes Nonspecific intraventricular conduction delay Compared to ECG 05/25/2019 15:38:38 Intraventricular conduction delay now present Early repolarization now present Sinus tachycardia no longer present Atrial fibrillation is new Electronically Signed On 07-14-2020 10:03:04 CDT by Carlos Sharma [email or web address] <ELECTRONICALLY SIGNED> By: Carlos Sharma MD 07/14/20 1003 Carlos Sharma MD /EPI
== END ==
LOC: CATH 06:36
PROVIDERS: ATTEND Internal Medicine
DX: I08.1 Rheumatic disorders of both mitral and tricuspid valves (principal); I48.91 Unspecified atrial fibrillation; I25.10 Atherosclerotic heart disease of native coronary artery without angina pectoris; E11.9 Type 2 diabetes mellitus without complications; E78.5 Hyperlipidemia, unspecified; E66.9 Obesity, unspecified; I11.0 Hypertensive heart disease with heart failure; I50.42 Chronic combined systolic (congestive) and diastolic (congestive) heart failure; I25.5 Ischemic cardiomyopathy; I65.23 Occlusion and stenosis of bilateral carotid arteries; G47.33 Obstructive sleep apnea (adult) (pediatric); Z95.1 Presence of aortocoronary bypass graft; Z79.899 Other long term (current) drug therapy; Z79.84 Long term (current) use of oral hypoglycemic drugs; Z79.82 Long term (current) use of aspirin; Z98.890 Other specified postprocedural states; Z72.89 Other problems related to lifestyle

== ENCOUNTER → 2020-08-23 | Outpatient (CLI) | payer OTHER, BC ==
[~2020-08-23] MED LIST changes: +COLACE100 MG PO; +POTASSIUM20 PO
== END ==
LOC: SJCVC 14:19
PROVIDERS: ATTEND Internal Medicine
DX: R94.31 Abnormal electrocardiogram [ECG] [EKG] (principal); I44.7 Left bundle-branch block, unspecified; I44.39 Other atrioventricular block; E11.22 Type 2 diabetes mellitus with diabetic chronic kidney disease; I13.0 Hypertensive heart and chronic kidney disease with heart failure and stage 1 through stage 4 chronic kidney disease, or unspecified chronic kidney disease; I50.40 Unspecified combined systolic (congestive) and diastolic (congestive) heart failure; N18.9 Chronic kidney disease, unspecified; I48.3 Typical atrial flutter; I42.8 Other cardiomyopathies; I47.2 Ventricular tachycardia; I49.3 Ventricular premature depolarization; I34.0 Nonrheumatic mitral (valve) insufficiency; I25.10 Atherosclerotic heart disease of native coronary artery without angina pectoris; I25.5 Ischemic cardiomyopathy; I65.23 Occlusion and stenosis of bilateral carotid arteries; G47.33 Obstructive sleep apnea (adult) (pediatric); I48.19 Other persistent atrial fibrillation; Z95.1 Presence of aortocoronary bypass graft; Z79.899 Other long term (current) drug therapy

== ENCOUNTER → 2020-08-24 | Outpatient (CLI) | payer OTHER, BC ==
[~2020-08-24] MED LIST changes: -COLACE100 MG PO; -POTASSIUM20 PO
== END ==
LOC: LAB 10:36
PROVIDERS: ATTEND Internal Medicine Cardiovascular Disease
DX: Z01.812 Encounter for preprocedural laboratory examination (principal); Z20.828 Contact with and (suspected) exposure to other viral communicable diseases

== ENCOUNTER 2020-08-29 08:35 | Inpatient (IN) | payer OTHER, BC ==
[~2020-08-29] VITALS: Ht 182.9 cm; Wt 115.7 kg
[2020-08-29 09:35] LABS: ABSOLUTE NEUTROPHILS 5.7 thou/uL (1.4-8.2); BASOPHILS 1.6 % (0.0-2.0); EOSINOPHILS 0.8 % (0.0-3.0); HEMATOCRIT 38.7 % (42.0-52.0); HEMOGLOBIN 12.7 gm/dL (14.0-18.0); LYMPHOCYTES 15.4 % (24.0-44.0); MCH 28.4 pg (26.0-34.0); MCV 86.2 fL (80.0-100.0); MONOCYTES 10.6 % (1.0-8.0); POLYS 71.6 % (36.0-66.0); RBC 4.49 mil/uL (4.50-6.00); RDW 18.9 % (10.5-14.5); WBC 8.5 thou/uL (4.0-11.0)
[2020-08-29 09:46] LABS: CALCIUM 9.4 mg/dL (8.5-10.1); CREATININE 2.2 mg/dL (0.7-1.3); POTASSIUM 3.5 mmol/L (3.5-5.1)
[2020-08-29 09:49] VITALS: BP 104/57
[2020-08-29 09:49] LABS: APTT 28.1 Seconds (24.5-32.8); INR 1.3; PROTIME 13.1 Seconds (9.3-11.4)
[2020-08-29 09:52] LABS: ALBUMIN 3.8 g/dL (3.4-5.0); TOTAL BILIRUBIN 1.4 mg/dL (0.2-1.0); TOTAL PROTEIN 7.5 g/dL (6.4-8.2)
[2020-08-29] MEDS ORDERED: POTASSIUM20 PO (10:15)
[2020-08-29] MEDS ORDERED: COLACE100 MG PO (10:16)
[2020-08-29 11:54] LABS: ANISOCYTOSIS 2+; OVALOCYTES FEW
[2020-08-29 11:55] LABS: PLATELET COUNT 169 thou/uL (150-400)
[2020-08-29 15:30] VITALS: BP 92/52
[2020-08-29 16:55] VITALS: BP 98/57
--- NOTE | 2020-08-29 19:55 | NUR ---
ASSUMED CARE OF PT AT APPROX 1345 FROM EP LAB D/T ICD PLACEMENT IN L SUBCLAVIAN. ADMISSION ASSESSMENT, EDUCATION AND ORDERS COMPLETE. PT ORIENTED TO ROOM. MEDS GIVEN PER DEC. C/O PAIN TREATED WITH TYLENOL. PLAN TO DC IN MORNING. WILL CONTINUE TO MONITOR AND FOLLOW POC.
[2020-08-29 20:00] VITALS: BP 93/55
[2020-08-30] VITALS: BP 97/54
[2020-08-30 04:00] VITALS: BP 97/56
[2020-08-30 04:26] LABS: CALCIUM 9.8 mg/dL (8.5-10.1); CREATININE 1.8 mg/dL (0.7-1.3)
[2020-08-30 04:27] LABS: POTASSIUM 3.4 mmol/L (3.5-5.1)
--- NOTE | 2020-08-30 05:30 | NUR ---
PROGRESS PT A/O X4 VSS, TELE INTACT READING SR. LEFT CHEST INCISION C/D/I WITH INTACT DERMABOND JM. NO HEMATOMA NOTED NO DRAINAGE NOTED. PT ABLE TO VOID PER URINAL BUT SPILLED IT ON FLOOR. DENIES PAIN. HAS DIET CONTROLLED DIABETIC, 3 PLUS EDEMA TO BLE'S. RESTED ON AND OFF THROUGHOUT NOC. CONTINUE TO MONITOR.
--- NOTE | 2020-08-30 10:09 | NUR ---
CONSULT [id number] WAS COMPLETED BY THIS CLIPPER COUNTERS.
[2020-08-30 10:50] VITALS: BP 90/49
[2020-08-30 11:05] VITALS: BP 90/49
--- NOTE | 2020-08-30 12:29 | NUR ---
ASSUMED CARE OF PT AT SHIFT CHANGE. ASSESSMENT CHARTED. MEDS GIVEN PER DEC. PT A&OX24, NO C/O PAIN OR SOA. CXR AND DEVICE INTERROGATION COMPLETE. DISCHARGE ORDERS AND INSTRUCTIONS COMPLETE. IV AND TELE DC'D. PT TAKEN TO MAIN ENTRANCE VIA WHEELCHAIR TO WAITING FRIENDS CAR.
--- NOTE | 2020-08-31 12:43 | P ---
[facility] [place] [address] PROCEDURE REPORT Name: BARBI COLIN Room #: 212-P [facility] IN M.R.#: [id number] Admission: 08/29/20 Attend Phys: Aiden Castellano MD Discharge: 08/30/20 Date of : 46 Report #: [id number] THIS REPORT FOR: cc: Clarence Puckett MD, David W. MD Couchonnal, Luis F. MD ~ CC: Clarence Castellano ICD IMPLANTATION. PREOPERATIVE DIAGNOSES: Ischemic cardiomyopathy. HISTORY: The patient is a 70-year-old with a history of coronary artery disease, status post CABG with ischemic cardiomyopathy, EF of less than 35% with severe mitral regurgitation and new onset atrial fibrillation and atrial flutter. He has chronic LV systolic heart failure with [place] [employer] functional class II-III heart failure symptoms. He is here for ICD implantation for primary prevention of sudden cardiac . ANESTHESIA: The patient underwent MAC anesthesia with no anesthesia related complications. DESCRIPTION OF PROCEDURE: The patient underwent informed consent, we discussed the details of the procedure including the risks, which include but not limited to bleeding, infection, vascular damage, cardiac perforation, and pneumothorax. He understood these risks and is willing to proceed. The patient was brought to the EP laboratory in a fasting nonsedated state and prepped and draped in a sterile fashion. He underwent a venogram showing patency of the left axillary vein and received IV antibiotics prior to initiation of the procedure. Next, lidocaine was injected below the level of the left clavicle. Incision was made. A pocket was created over the prepectoral fashion and access was obtained twice the left axillary vein using the extrathoracic approach x 2. Sheaths were positioned using the modified Seldinger technique. Next, under fluoroscopy, a ventricular lead was attempted to be positioned into the right ventricular apex. This was a [employer] lead. I spent 20-30 minutes trying to get this to the RV apex and it would dislodge or the R waves would decrease and I could not get it to an adequate position. Therefore, I removed this lead and switched vendors to [employer] as they have a thinner ICD lead that is easier to deliver. This lead was positioned in the right ventricular apex with adequate pacing and sensing thresholds. I then positioned an atrial lead in the right atrial appendage. These leads were sutured to the prepectoral fascia. Of note, the patient did have very high right-sided pressures, had to hold a lot of pressure over the leads to stop the bleeding. Eventually, I was able to suture the leads to the prepectoral fascia using Ethibond suture. Device was connected to the device. Tug tests were [facility] [address] [place] [address] PROCEDURE REPORT Name: BARBI COLIN Room #: 212-P [facility] IN M.R.#: [id number] Admission: 08/29/20 Attend Phys: Aiden Castellano MD Discharge: 08/30/20 Date of : 46 Report #: [id number] performed and placed in the pocket. The pocket was irrigated with vancomycin. Pocket was closed in 2 layers using 2-0 for the deep layer was 3-0 for the middle layer and surgical glue was placed throughout her skin layer. The patient awoke neurologically and hemodynamically intact. No complications. No significant bleeding. The implanted device was a [employer] model number [id number] with a serial number [id number]. The atrial lead was a [employer], model number 2088TC, serial number [id number] and the ventricular lead was a [employer], model number 7120 65 cm, serial number [id number]. Atrial lead demonstrated the patient was in atrial flutter with P waves of 1.2 millivolts and the pacing impedance of 5. Next at 60 ohms, the RV lead demonstrated a pacing threshold of 0.75 volts at 0.5 milliseconds; R waves of 11.1 millivolts and a pacing impedance of 450 ohms and a shock impedance of 35 ohms. The device was programmed to the VVI 40 mode. The VT zone was set at 180-220 beats per minute with 3 rounds of burst followed by 3 rounds of ramp followed by max output shocks. The VF zone was set greater than 220 beats per minute with ATP while charging followed by max output shocks. CONCLUSION: 1. Successful dual-chamber ICD implantation. 2. Satisfactory atrial and ventricular pacing thresholds. PLAN: 1. The patient will be admitted for IV diuresis as he appeared to be in heart failure. 2. The patient will be initiated on anticoagulation and eventually undergo DC cardioversion for his recently diagnosed AFib and atrial flutter. <ELECTRONICALLY SIGNED> By: Aiden Castellano MD 08/31/20 1243 1455 08 Aiden Castellano MD /nt
== END 2020-08-30 12:23 | disposition home or self-care (01) | DRG 226 ==
LOC: CATH 08:35 → 2N 15:26 → CATH 15:27 → 2N 08-30 12:23
PROVIDERS: Internal Medicine; ADMIT Internal Medicine Cardiovascular Disease; ATTEND Internal Medicine Cardiovascular Disease
PROC: 02HK3KZ Insertion of Defibrillator Lead into Right Ventricle, Percutaneous Approach (ICD-10-PCS; principal; 2020-08-29)
PROC: 0JH608Z Insertion of Defibrillator Generator into Chest Subcutaneous Tissue and Fascia, Open Approach (ICD-10-PCS; principal; 2020-08-29)
PROC: 02H63KZ Insertion of Defibrillator Lead into Right Atrium, Percutaneous Approach (ICD-10-PCS; principal; 2020-08-29)
DX: I25.5 Ischemic cardiomyopathy (principal); I50.21 Acute systolic (congestive) heart failure; N17.9 Acute kidney failure, unspecified; I48.92 Unspecified atrial flutter; I13.0 Hypertensive heart and chronic kidney disease with heart failure and stage 1 through stage 4 chronic kidney disease, or unspecified chronic kidney disease; I48.19 Other persistent atrial fibrillation; I25.10 Atherosclerotic heart disease of native coronary artery without angina pectoris; I34.0 Nonrheumatic mitral (valve) insufficiency; N18.9 Chronic kidney disease, unspecified; E78.5 Hyperlipidemia, unspecified; E11.22 Type 2 diabetes mellitus with diabetic chronic kidney disease; E87.70 Fluid overload, unspecified; I95.9 Hypotension, unspecified; G47.33 Obstructive sleep apnea (adult) (pediatric); E66.9 Obesity, unspecified; Z68.34 Body mass index [BMI] 34.0-34.9, adult

== ENCOUNTER → 2020-09-06 | Outpatient (CLI) | payer OTHER, BC ==
[~2020-09-06] MED LIST changes: +COLACE100 MG PO; +POTASSIUM20 PO
== END ==
LOC: LAB 11:42
PROVIDERS: ATTEND Internal Medicine Cardiovascular Disease
DX: Z01.812 Encounter for preprocedural laboratory examination (principal); Z20.828 Contact with and (suspected) exposure to other viral communicable diseases

== ENCOUNTER → 2020-09-06 | Outpatient (CLI) | payer OTHER, BC ==
[~2020-09-06] MED LIST changes: +MINOCYCLINE 5050 M1 PO
== END ==
LOC: SJCVC 10:38
PROVIDERS: ATTEND Internal Medicine Cardiovascular Disease
DX: T82.198A Other mechanical complication of other cardiac electronic device, initial encounter (principal); E11.9 Type 2 diabetes mellitus without complications; I11.0 Hypertensive heart disease with heart failure; I50.42 Chronic combined systolic (congestive) and diastolic (congestive) heart failure; I42.9 Cardiomyopathy, unspecified; I48.91 Unspecified atrial fibrillation; I25.10 Atherosclerotic heart disease of native coronary artery without angina pectoris; E66.9 Obesity, unspecified; I48.92 Unspecified atrial flutter; G47.33 Obstructive sleep apnea (adult) (pediatric); Z95.1 Presence of aortocoronary bypass graft; Z95.810 Presence of automatic (implantable) cardiac defibrillator; Z79.82 Long term (current) use of aspirin; Z79.899 Other long term (current) drug therapy; Y83.8 Other surgical procedures as the cause of abnormal reaction of the patient, or of later complication, without mention of misadventure at the time of the procedure; Y92.89 Other specified places as the place of occurrence of the external cause

== ENCOUNTER 2020-09-09 11:18 | Inpatient (IN) | payer OTHER, BC ==
[~2020-09-09] VITALS: Ht 188 cm; Wt 105.2 kg
--- NOTE | ~2020-09-09 | P ---
[facility] [place] [address] PROCEDURE REPORT Name: BARBI COLIN Room #: 200-I [facility] IN M.R.#: [id number] Admission: 09/09/20 Attend Phys: Aiden Castellano MD Discharge: 09/10/20 Date of : 46 Report #: [id number] THIS REPORT FOR: cc: Clarence Puckett MD,Clarence Castellano,Aiden Adams MD ~ CC: Clarence Castellano PROCEDURE: Lead revision. PREOPERATIVE DIAGNOSIS: Right ventricular lead micro-dislodgement. POSTOPERATIVE DIAGNOSIS: Right ventricular lead micro-dislodgement. HISTORY: The patient is a 70-year-old with history of cardiomyopathy, status post recent ICD implantation, noted in clinic to have a micro lead dislodgement of his lead. He is here for revision. ANESTHESIA: The patient underwent MAC anesthesia with no anesthesia related complications. DESCRIPTION OF PROCEDURE: The patient underwent informed consent. We discussed the details of the procedure including the risks, which include but not limited to bleeding, infection, need for possible further lead revisions as well as cardiac perforation. He understood these risks and is willing to proceed. He was brought to EP laboratory in fasting and sedated state, prepped and draped in a sterile fashion, received IV antibiotics prior to initiation of the procedure. Next, I injected lidocaine at the prior incision site. The incision was opened and the old device was removed. I then unscrewed the lead from the header and then placed a stylet into the lead and then unscrewed the lead from the RV apex. I then advanced the lead to a new position and deployed the screw and there was adequate pacing and sensing thresholds at this site. The lead was sutured to prepectoral fascia, reconnected to the device. Tug test was performed. The device was tested and thresholds and sensing were stable. A TYRX antibiotic pouch was placed in the pocket given his higher risk for infection given re-instrumentation of the pocket. The lead demonstrated a threshold of 1 volt at 0.5 milliseconds, R-waves 9.4 millivolts, pacing impedance 660 ohms. The device was programmed back to its original settings. CONCLUSIONS: [facility] [address] [place] [address] PROCEDURE REPORT Name: BARBI COLIN Room #: 200-I [facility] IN .R.#: [id number] Admission: 09/09/20 Attend Phys: Aiden Castellano MD Discharge: 09/10/20 Date of : 46 Report #: [id number] 1. Successful ICD RV lead revision. 2. Successful implantation of a TYRX antibiotic pouch. By: [id number] Aiden Castellano MD /nt
[2020-09-09 10:27] VITALS: BP 97/51
[2020-09-09 10:47] LABS: ABSOLUTE NEUTROPHILS 5.3 thou/uL (1.4-8.2); BASOPHILS 0.8 % (0.0-2.0); EOSINOPHILS 1.8 % (0.0-3.0); HEMOGLOBIN 12.5 gm/dL (14.0-18.0); LYMPHOCYTES 16.3 % (24.0-44.0); MCH 28.2 pg (26.0-34.0); MCHC 32.9 g/dL (28.0-37.0); MCV 85.9 fL (80.0-100.0); MONOCYTES 11.9 % (1.0-8.0); POLYS 69.2 % (36.0-66.0); RBC 4.42 mil/uL (4.50-6.00); RDW 18.6 % (10.5-14.5); WBC 7.7 thou/uL (4.0-11.0)
[2020-09-09 10:57] LABS: ALBUMIN 3.9 g/dL (3.4-5.0); CREATININE 2.2 mg/dL (0.7-1.3); TOTAL BILIRUBIN 1.3 mg/dL (0.2-1.0); TOTAL PROTEIN 7.7 g/dL (6.4-8.2)
[2020-09-09 11:00] LABS: APTT 27.4 Seconds (24.5-32.8); INR 1.3; POTASSIUM 2.3 mmol/L (3.5-5.1)
[~2020-09-09 11:18] MED LIST changes: -MINOCYCLINE 5050 M1 PO
[2020-09-09 12:23] LABS: ANISOCYTOSIS 2+; PLATELET COUNT 178 thou/uL (150-400); PLATELET ESTIMATE NORMAL; SCHISTOCYTES 1+
--- NOTE | 2020-09-09 12:23 | 2DMMODE ---
[facility] [place] [address] 2 D/M-MODE ECHOCARDIOGRAM Name: BARBI COLIN Room #: REG MADAI GriffinDesean#: [id number] Admission: 09/09/20 Attend Phys: Aiden Castellano MD Discharge: Date of : 46 Report #: [id number] THIS REPORT FOR: cc: Clarence Puckett MD, David W. MD Santiago, Patrick MD [facility] ~ APPROVED REPORT Study performed: 09/09/2020 11:52:11 EXAM: Limited 2D, Doppler, and color-flow Echocardiogram Patient Location: CVL Status: HEMANT BSA: 2.02 HR: 55 bpm BP: 97/51 mmHg Rhythm: Irregular Other Information Study Quality: Good Indications Limited echo to rule out pericardial effusion. Hx: ICD (08/2020), ISCM, CABG, MV repair. Aortic Valve AoV Peak Josh.: 1.30 m/s AO Peak Gr.: 6.80 mmHg Tricuspid Valve TR Peak Josh.: 2.79 m/s RAP Estimate: 15.00 mmHg TR Peak Gr.: 31.15 mmHg PA Pressure: 46.00 mmHg Left Ventricle There is normal left ventricular wall thickness. Left ventricular systolic function is moderate to severely decreased. LVEF is 30-35%. Right Ventricle Right ventricle is dilated. Device lead is present in the right ventricle. [facility] [address] [place] [address] 2 D/M-MODE ECHOCARDIOGRAM Name: DIXIEBARBI ADEEL Room #: REG CL DeseanDesean#: [id number] Admission: 09/09/20 Attend Phys: Aiden Castellano Discharge: Date of : 46 Report #: [id number] Biatrial enlargement. Aortic Valve The aortic valve is normal in structure. No aortic regurgitation is present. There is no aortic valvular stenosis. Mitral Valve History of MV repair. Severe mitral regurgitation. Tricuspid Valve The tricuspid valve is normal in structure. Moderate tricuspid regurgitation. Estimated PAP is 45mmHg. Great Vessels IVC is dilated and collapses <50% with inspiration. Pericardium There is no pericardial effusion. <Conclusion> Left ventricle size in the upper limits of normal with a normal wall thickness Global hypokinesis ejection fraction of 30% Right ventricle is moderately dilated and hypokinetic Moderate biatrial enlargement Normal aortic valve structure and function Moderate mitral annular calcification Moderate to severe central mitral valve insufficiency Moderate tricuspid valve insufficiency Pulmonary artery systolic pressure estimated 45 mmHg Pacer wire detected in the right ventricle Dilated IVC No pericardial effusion <ELECTRONICALLY SIGNED> By: Archie Fan MD, [facility] 09/09/20 1222 122 122 Archie Fan MD, FACC /INF
[2020-09-09 14:00] LABS: CALCIUM 9.4 mg/dL (8.5-10.1); CREATININE 2.1 mg/dL (0.7-1.3)
[2020-09-09 14:09] LABS: POTASSIUM 2.4 mmol/L (3.5-5.1)
--- NOTE | 2020-09-09 18:29 | NUR ---
PT ADMITED FROM [facility] [employer] [employer]. ADMISSION HX AND ASSESSMENT COMPLETED. HAD LOW BP. DR. AGUIRRE NOTIFIED. ORDERS GIVEN TO HOLD SCHEDULED COREG. PT DENIED HAVING PAIN OR DISCOMFORT. PACEMAKER INCISION C/D/I. ON STRICT BEDREST FOR 24 HOURS. NO CONCERNS AT THIS TIME.
[2020-09-09 19:30] VITALS: BP 92/48
[2020-09-10 00:23] VITALS: BP 100/53
[2020-09-10 03:30] VITALS: BP 81/53
[2020-09-10 03:53] LABS: CREATININE 2.1 mg/dL (0.7-1.3)
[2020-09-10 03:56] LABS: POTASSIUM 4.1 mmol/L (3.5-5.1)
[2020-09-10 04:01] LABS: MAGNESIUM 2.1 mg/dL (1.8-2.4)
--- NOTE | 2020-09-10 04:45 | NUR ---
PT BEEN RESTING IN NO ACUTE DISTRESS.S/P PACEMAKER LEAD REVISION.A-PACED ON MONITOR W/SVR.IMMOBILZER IN PLACE.BEEN ON BR.PACEMAKER INCISION INTACT.BLOOD PRESSURE BEEN SOFT,THOUGH PATIENT NOT SYMPTOMATIC.DENIES ANY CONCERNS.VOIDS VIA URINAL.ANTICIPATING DISCHARGE TO HOME TODAY.WILL CONT TO MONITOR PER POC.
[2020-09-10 05:07] VITALS: BP 91/53
[2020-09-10 07:26] VITALS: BP 95/59
[2020-09-10] MEDS ORDERED: POTASSIUM20 PO (08:42)
[2020-09-10 08:50] VITALS: BP 95/59
[2020-09-10 11:00] VITALS: BP 95/59
--- NOTE | 2020-09-10 11:55 | NUR ---
DISCHARGING TO HOME. VSS. NO C/O. A-PACED PER TELE.
== END 2020-09-10 12:05 | disposition home or self-care (01) | DRG 260 ==
LOC: CATH 11:18 → 2N 16:35
PROVIDERS: Internal Medicine; ADMIT Internal Medicine Cardiovascular Disease; ATTEND Internal Medicine Cardiovascular Disease
PROC: 3E0132A Introduction of Anti-Infective Envelope into Subcutaneous Tissue, Percutaneous Approach (ICD-10-PCS; principal; 2020-09-09)
PROC: 02WA3MZ Revision of Cardiac Lead in Heart, Percutaneous Approach (ICD-10-PCS; principal; 2020-09-09)
DX: T82.120A Displacement of cardiac electrode, initial encounter (principal); I50.23 Acute on chronic systolic (congestive) heart failure; I48.19 Other persistent atrial fibrillation; I13.0 Hypertensive heart and chronic kidney disease with heart failure and stage 1 through stage 4 chronic kidney disease, or unspecified chronic kidney disease; Y83.8 Other surgical procedures as the cause of abnormal reaction of the patient, or of later complication, without mention of misadventure at the time of the procedure; E87.6 Hypokalemia; I25.5 Ischemic cardiomyopathy; E78.5 Hyperlipidemia, unspecified; I25.10 Atherosclerotic heart disease of native coronary artery without angina pectoris; N18.9 Chronic kidney disease, unspecified; G47.33 Obstructive sleep apnea (adult) (pediatric); E11.22 Type 2 diabetes mellitus with diabetic chronic kidney disease; I34.0 Nonrheumatic mitral (valve) insufficiency; Y92.89 Other specified places as the place of occurrence of the external cause; Z79.899 Other long term (current) drug therapy
CPT/HCPCS: 10797; 62110; 62900; 70005

== ENCOUNTER 2020-09-15 16:00 | Inpatient (IN) | payer OTHER, BC ==
[~2020-09-15] VITALS: Ht 188 cm; Wt 110.2 kg
--- NOTE | ~2020-09-15 | P ---
[facility] [place] [address] PROCEDURE REPORT Name: BARBI COLIN Room #: 216-P [facility] IN M.R.#: [id number] Admission: 09/15/20 Attend Phys: Bibi Calderon MD Discharge: 09/17/20 Date of : 46 Report #: [id number] THIS REPORT FOR: cc: Clarence Puckett MD,[facility] center[facility] garcia MD ~ PREOPERATIVE DIAGNOSIS: RV lead micro-dislodgement. POSTOPERATIVE DIAGNOSIS: RV lead micro-dislodgement. HISTORY: The patient is a 70-year-old with history of ischemic cardiomyopathy, status post recent ICD lead revision, presenting again with another RV lead dislodgement. He is here for repeat lead revision. ANESTHESIA: The patient underwent MAC anesthesia with no anesthesia-related complications. DESCRIPTION OF PROCEDURE: The patient received IV antibiotics. Lidocaine was administered. An incision was made. The pocket was entered. The lead was disconnected from the can. This lead was removed and a new access was obtained to the left axillary vein and a new [employer] ICD lead, model #[id number], serial #[id number] was positioned. R waves were 12, impedance was 550 and threshold was 0.75 volts at 0.5 milliseconds. This lead was positioned in the high right ventricular septum as the prior positioned leads had small R waves and eventually had high pacing thresholds. The newly implanted ICD lead was positioned into the can. Atrial lead was within normal limits. The can was placed back in the pocket. Pocket was closed in 2 layers. Surgical glue was placed to outer skin layer and there were no procedure-related complications. CONCLUSIONS: Successful ICD lead revision. By: [id number] Aiden Castellano MD /nt
[2020-09-15 16:27] VITALS: BP 86/52
[2020-09-15 17:37] LABS: HEMATOCRIT 37.5 % (42.0-52.0); HEMOGLOBIN 12.1 gm/dL (14.0-18.0); MCH 28.1 pg (26.0-34.0); MCHC 32.2 g/dL (28.0-37.0); MCV 87.3 fL (80.0-100.0); RBC 4.29 mil/uL (4.50-6.00); RDW 19.7 % (10.5-14.5); WBC 6.5 thou/uL (4.0-11.0)
[2020-09-15 17:45] LABS: CREATININE 2.4 mg/dL (0.7-1.3); POTASSIUM 3.1 mmol/L (3.5-5.1)
[2020-09-15 18:04] LABS: CALCIUM 9.2 mg/dL (8.5-10.1)
[2020-09-15 19:55] VITALS: BP 94/60
[2020-09-16 01:30] VITALS: BP 95/58
--- NOTE | 2020-09-16 04:12 | NUR ---
PT ALERT AND ORIENTED. SOFT BP. JUNE ON THE MONITOR. DENIES CHEST DISCOMFORT, DIZZINESS OR SOB. NPO SINCE MIDNIGHT. SCHEDULED FOR AICD LEADS REVISION
[2020-09-16 04:30] VITALS: BP 97/54
[2020-09-16 07:35] VITALS: BP 94/52
[2020-09-16 11:10] VITALS: BP 101/60
--- NOTE | 2020-09-16 11:35 | NUR ---
S.C. CONSULT [id number] WAS COMPLETED BY SULY STEPHENS.
--- NOTE | 2020-09-16 14:13 | NUR ---
Nutrition: Received consult stating "Pre DM". pt admit for lead revision of ICD. S/P revision last week also. PMH: Ischemic heart disease, cardiomyopathy and CABG. No BG to eval. No recent weight loss with good intake documented last week. pt currently NPO and out of room for procedure. RD can followup next week if remains admitted.
[2020-09-16 15:21] VITALS: BP 92/55
[2020-09-16] MEDS ORDERED: MINOCYCLINE 5050 M1 PO (15:59)
--- NOTE | 2020-09-16 19:45 | NUR ---
RECEIVED PT'S CARE AROUND 0736; PT. ON BED; RESTING WITH EYES CLOSED; EQUAL CHEST RISING NOTICED; VPACED ON THE MONITOR; JUNE; NPO DURING AM; HOLD AM MEDICATIONS; SBP ON THE 90s; SCHEDULED PROCEDURE FOR LATER ON THE DAY; GONE AROUND 1100; BACK FROM PROCEDURE AFTER 1500; JUNE; VPACED; NO C/O PAIN; SCHEDULED MEDICATION GIVEN; MONITORING; EDUCATED ABOUT USING URINAL; ST. UNDERSTANDING; REQUESTED PRN PAIN MEDICATION; GIVEN; REQUESTED MELATONIN FOR HS; DR. WALTON NOTIFIED; ORDERS RECEIVED; ASSESSMENT CHARGED; FOLLOWING POC; PASSED ON REPORT;
[2020-09-16 20:00] VITALS: BP 100/55
[2020-09-17] VITALS (7 sets, daily range): BP systolic 77–100; BP diastolic 44–63
--- NOTE | 2020-09-17 06:04 | NUR ---
ASSUMED CARE OF THE PATIENT AT 1900; AOX4/ UP WITH ASSIST; AFIB/JUNE ON THE MONITOR; LEFT UPPER CHEST PACEMAKER SITE C/D/I WITH C/O OF PAIN MANAGED WITH MEDICATION WITH SUCCESS; PLAN IS FOR PATIENT TO D/C TO HOME TODAY; WILL CONTINUE TO MONITOR.
[2020-09-17 12:25] LABS: CALCIUM 9.6 mg/dL (8.5-10.1); CREATININE 1.9 mg/dL (0.7-1.3); POTASSIUM 3.6 mmol/L (3.5-5.1)
--- NOTE | 2020-09-17 13:37 | NUR ---
ASSUMED CARE AT CHANGE OF SHIFT. ALERTX4, FROM HOME, ADL'S WITH CANE. INSTRUCTED TO USE CANE WITH RIGHT ARM DUE TO PACEMAKER PLACED.KEEP INCISION CLEAN AND DRY. AND EDUCATED NOT TO PUSH OR PULL OR RAISE LEFT ARM ABOVE HEAD. NO LIFTING 10LBS 1 WEEK. NOTED LOW BP TO DR ANTON PAUL TO DC PT ASYMPTOMATIC. IV AND TELE REMOVED. BELONGINGS SENT WITH PATIENT
== END 2020-09-17 14:51 | disposition home or self-care (01) | DRG 265 ==
LOC: 2N 16:00
PROVIDERS: Internal Medicine; Nurse Practitioner; ADMIT Internal Medicine Cardiovascular Disease; ATTEND Internal Medicine
PROC: 02HK3KZ Insertion of Defibrillator Lead into Right Ventricle, Percutaneous Approach (ICD-10-PCS; principal; 2020-09-15)
PROC: 02PA3MZ Removal of Cardiac Lead from Heart, Percutaneous Approach (ICD-10-PCS; principal; 2020-09-15)
DX: T82.118A Breakdown (mechanical) of other cardiac electronic device, initial encounter (principal); I25.5 Ischemic cardiomyopathy; I25.10 Atherosclerotic heart disease of native coronary artery without angina pectoris; I10 Essential (primary) hypertension; E66.9 Obesity, unspecified; E11.9 Type 2 diabetes mellitus without complications; G47.33 Obstructive sleep apnea (adult) (pediatric); Z20.828 Contact with and (suspected) exposure to other viral communicable diseases; N40.0 Benign prostatic hyperplasia without lower urinary tract symptoms; Z96.651 Presence of right artificial knee joint; Y83.1 Surgical operation with implant of artificial internal device as the cause of abnormal reaction of the patient, or of later complication, without mention of misadventure at the time of the procedure; I07.1 Rheumatic tricuspid insufficiency; Z68.31 Body mass index [BMI] 31.0-31.9, adult; Z95.1 Presence of aortocoronary bypass graft; Z79.899 Other long term (current) drug therapy; Y92.89 Other specified places as the place of occurrence of the external cause

== ENCOUNTER → 2020-09-21 | Outpatient (CLI) | payer OTHER, BC ==
[~2020-09-21] MED LIST changes: +MINOCYCLINE 5050 M1 PO
== END ==
LOC: SJCVC 12:51
PROVIDERS: ATTEND Internal Medicine
DX: I25.10 Atherosclerotic heart disease of native coronary artery without angina pectoris (principal); I11.0 Hypertensive heart disease with heart failure; I50.42 Chronic combined systolic (congestive) and diastolic (congestive) heart failure; I25.5 Ischemic cardiomyopathy; I34.0 Nonrheumatic mitral (valve) insufficiency; I48.91 Unspecified atrial fibrillation; E78.5 Hyperlipidemia, unspecified; I65.23 Occlusion and stenosis of bilateral carotid arteries; E11.9 Type 2 diabetes mellitus without complications; G47.33 Obstructive sleep apnea (adult) (pediatric); E66.9 Obesity, unspecified; Z79.82 Long term (current) use of aspirin; Z79.899 Other long term (current) drug therapy

== ENCOUNTER → 2021-01-23 | Outpatient (CLI) | payer OTHER, BC | LOC: SJCVC 11:14 | PROVIDERS: ATTEND Internal Medicine | DX: R94.31 Abnormal electrocardiogram [ECG] [EKG] (principal); I48.0 Paroxysmal atrial fibrillation; I25.10 Atherosclerotic heart disease of native coronary artery without angina pectoris; I11.0 Hypertensive heart disease with heart failure; I50.42 Chronic combined systolic (congestive) and diastolic (congestive) heart failure; I25.5 Ischemic cardiomyopathy; I34.0 Nonrheumatic mitral (valve) insufficiency; E78.5 Hyperlipidemia, unspecified; I65.23 Occlusion and stenosis of bilateral carotid arteries; E11.9 Type 2 diabetes mellitus without complications; E66.9 Obesity, unspecified; G47.33 Obstructive sleep apnea (adult) (pediatric); Z95.1 Presence of aortocoronary bypass graft; Z98.890 Other specified postprocedural states; Z95.810 Presence of automatic (implantable) cardiac defibrillator; Z79.82 Long term (current) use of aspirin; Z79.899 Other long term (current) drug therapy ==

== ENCOUNTER → 2021-03-01 | Outpatient (CLI) | payer OTHER, BC | LOC: SJCVC 14:07 | PROVIDERS: ATTEND Internal Medicine | DX: R94.31 Abnormal electrocardiogram [ECG] [EKG] (principal); I25.10 Atherosclerotic heart disease of native coronary artery without angina pectoris; I11.0 Hypertensive heart disease with heart failure; I50.42 Chronic combined systolic (congestive) and diastolic (congestive) heart failure; I65.23 Occlusion and stenosis of bilateral carotid arteries; E11.9 Type 2 diabetes mellitus without complications; I25.5 Ischemic cardiomyopathy; I34.0 Nonrheumatic mitral (valve) insufficiency; I48.0 Paroxysmal atrial fibrillation; I10 Essential (primary) hypertension; E78.5 Hyperlipidemia, unspecified; G47.33 Obstructive sleep apnea (adult) (pediatric); E66.9 Obesity, unspecified; Z95.810 Presence of automatic (implantable) cardiac defibrillator; Z95.1 Presence of aortocoronary bypass graft; Z98.890 Other specified postprocedural states; Z79.82 Long term (current) use of aspirin; Z79.899 Other long term (current) drug therapy ==